=== PATIENT | female | born 1990 | race Caucasian/White ===

== ENCOUNTER 2017-12-07 21:11 | Emergency (ER) | payer BC, OTHER ==
[2017-12-07 21:57] VITALS: BP 121/86
--- NOTE | 2017-12-08 01:12 | ED ---
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 Pt was administering subcutaneous injection and went through pts skin to her own finger. The inpatient had tested neg for HIV this admission. She denies any symptoms or concerns. The needlestick is to the left index finger. - History of Current Complaint Chief Complaint: EDExposureBodyFluid Stated Complaint: NEEDLE STICK Time Seen by Provider: 12/07/17 21:17 Blood on Needle: No Bleeding at Site: No - Source Information HIV: No Hepatitis: Unknown - Risk Factors Needlestick Risk Factor: Low Risk: Solid Needle - Other Discussed Post-Exposure prophylaxis (PEP) for HIV: Declined Discussed PEP for Hepatitis-B: Declined Serologic Testing (HIV/HBV) Declined by Patient: Yes PMH/Surg Hx/FS Hx/Imm Hx Previously Healthy: Yes - Immunization History Hx Pertussis Vaccination: No Immunizations Up to Date: Unable to Obtain/Confirm Infectious Disease History: No Infectious Disease History: Denies: Traveled Outside the in Last 30 Days - Social History Occupation: Employed Full-time Lives: With Family Alcohol Use: None Substance Use Type: Reports: None Smoking Status (MU): Never Smoked Tobacco Review of Systems Constitutional: Negative Negative: Fever, Chills, Fatigue, Skin Diaphoresis Negative: Palpitations, Chest Pain Negative: Shortness Of Breath, Cough Genitourinary: Negative Positive: no symptoms reported, see HPI Positive: Other - punture wound tothe left index finger Neurological: Negative All Other Systems Reviewed And Are Negative: Yes Physical Exam Triage Information Reviewed: Yes Vital Signs On Initial Exam: Initial Vitals Temp Pulse Resp BP Pulse Ox 98.4 F 112 18 123/87 100 12/07/17 21:15 12/07/17 21:15 12/07/17 21:15 12/07/17 21:15 12/07/17 21:15 Vital Signs Reviewed: Yes Appearance: Positive: Well-Appearing, Well-Nourished Skin: Positive: Warm, Skin Color Reflects Adequate Perfusion Head/Face: Positive: Normal Head/Face Inspection Eyes: Positive: EOMI, ALENA, Conjunctiva Clear Neck: Positive: Supple, No Lymphadenopathy Respiratory/Lung Sounds: Positive: Clear to Auscultation, Breath Sounds Present Abdomen Description: Positive: Nontender, No Organomegaly Neurological: Positive: Alert, Oriented to Person Place, Time, Speech Normal Psychiatric: Positive: Normal, Affect/Mood Appropriate Diagnostics - Vital Signs Vital Signs Temp Pulse Resp BP Pulse Ox 12/07/17 21:56 98.4 F 97 16 121/86 100 12/07/17 21:15 98.4 F 112 18 123/87 100 - Laboratory Lab Statement: Any lab studies that have been ordered have been reviewed, and results considered in the medical decision making process. Needlestick Course/Dx - Course Course Of Treatment: I have discussed with the patient postexposure prophylaxis. Patient declines this, and I have advised against it as well. She is a low risk as there are 1 small puncture wound which did not draw blood. Source patient's last known status is negative for HIV. Hepatitis B antigen , hepatitis B antibody, hepatitis C antibody and HIV all obtained and will call with any positive results. - Diagnoses Provider Diagnoses: Exposure to blood Discharge - Sign-Out/Discharge Documenting (check all that apply): Discharge - Discharge Plan Condition: Stable Disposition: HOME Patient Education Materials: Body Substance Exposure (ED) Referrals: Non Staff,Doctor [Medical Doctor] - Additional Instructions: Will call with any abnormal results - Billing Disposition and Condition Condition: STABLE Disposition: HOME
== END 2017-12-07 21:56 | disposition home or self-care (01) ==
LOC: ED 21:11
DX: S61.231A Puncture wound without foreign body of left index finger without damage to nail, initial encounter (principal); X58.XXXA Exposure to other specified factors, initial encounter; Y92.239 Unspecified place in hospital as the place of occurrence of the external cause; Y99.0 Civilian activity done for income or pay; Z77.21 Contact with and (suspected) exposure to potentially hazardous body fluids; Z88.0 Allergy status to penicillin
CPT/HCPCS: 36415; 86706; 86803; 87340; 99282

== ENCOUNTER 2017-12-27 16:40 | Emergency (ER) | payer BC ==
[2017-12-27 17:07] VITALS: BP 121/55
--- NOTE | 2017-12-27 18:25 | RAD ---
INDICATION: Left knee injury. TECHNIQUE: 4 views of the left knee were obtained. FINDINGS: The bones are in normal alignment. There is a small joint effusion present. No fracture is seen. Joint spaces appear maintained. IMPRESSION: SMALL JOINT EFFUSION, NO FRACTURE IS SEEN.
--- NOTE | 2017-12-27 18:34 | UC ---
Knee Pain HPI - HPI Summary HPI Summary: PATIENT FELL TODAY WHILE CLEANING AND TWISTED LEFT KNEE. NOW IS HAVING SHARP PAIN WITH AMBULATION. NO NUMBNESS OR TINGLING. - History of Current Complaint Chief Complaint: UCLowerExtremity Stated Complaint: KNEE INJURY Time Seen by Provider: 12/27/17 18:25 Hx Obtained From: Patient Hx Last Menstrual Period: mirena Onset/Duration: Sudden Onset, Lasting Hours, Still Present Severity Initially: Moderate Severity Currently: Moderate Pain Intensity: 4 Pain Scale Used: 0-10 Numeric Character: Sharp Aggravating Factor(s): Movement, Weight Bearing Alleviating Factor(s): Rest Associated Signs And Symptoms: Positive: Swelling. Negative: Numbness, Tingling Able to Bear Weight: Yes - Allergies/Home Medications Allergies/Adverse Reactions: Allergies Allergy/AdvReac Type Severity Reaction Status Date / Time cefaclor [From [facility]] Allergy Anaphylatic Verified 12/27/17 17:07 Shock Latex, Natural Rubber Allergy Hives Verified 12/27/17 17:07 Penicillins Allergy Anaphylatic Verified 12/27/17 17:07 Shock Home Medications: Home Medications Albuterol inh POWDER (NF) [Proair Respiclick] 1 puff PO DAILY PRN 12/27/17 [ History Confirmed 12/27/17] Levothyroxine TAB* [Synthroid 100 MCG TAB*] 100 mcg PO DAILY 12/27/17 [History Confirmed 12/27/17] Mometasone/Formoter 100/5 MDI* [Dulera 100/5 MDI*] 1 puff PO DAILY PRN 12/27/17 [History Confirmed 12/27/17] PMH/Surg Hx/FS Hx/Imm Hx Endocrine History: Hypothyroidism Respiratory History: Asthma - Surgical History Surgical History: None - Family History Known Family History: Positive: Hypertension - Social History Alcohol Use: Occasionally Substance Use Type: None Smoking Status (MU): Never Smoked Tobacco Review of Systems Constitutional: Negative Skin: Negative Respiratory: Negative Cardiovascular: Negative Gastrointestinal: Negative Musculoskeletal: Arthralgia, Decreased ROM, Edema All Other Systems Reviewed And Are Negative: Yes Physical Exam Triage Information Reviewed: Yes Appearance: Well-Appearing, No Pain Distress, Well-Nourished Vital Signs: Initial Vital Signs Temp 98.9 F 12/27/17 17:01 Pulse 81 12/27/17 17:01 Resp 18 12/27/17 17:01 BP 121/55 12/27/17 17:01 Pulse Ox 100 12/27/17 17:01 Vital Signs Reviewed: Yes Eyes: Positive: Conjunctiva Clear ENT: Positive: Hearing grossly normal Neck: Positive: Supple Respiratory: Positive: No respiratory distress, No accessory muscle use Cardiovascular: Positive: Pulses Normal Abdomen Description: Positive: Soft Musculoskeletal: Positive: ROM Limited @ - LEFT KNEE, Edema @ - MILD LEFT KNEE, Other: - LEFT KNEE: MEDIAL JOINT LINE TENDERNESS. MCL AND LCL INTACT TO STRESS TESTING. NEG LACHMANS. NEG DRAWERS SIGNS. NEG MCMURRAYS. NEG PATELLAR APPREHENSION TEST. NO TENDERNESS OVER PATELLAR LIGAMENT OR QUADRICEPS TENDON. DECREASED ROM (FLEXION). Neurological: Positive: Alert Psychological: Positive: Age Appropriate Behavior Skin: Negative: rashes Diagnostics - Radiology LEFT KNEE XRAY Xray Interpretation: Positive (See Comments) - SMALL JOINT EFFUSION, NO FRACTURE IS SEEN. Radiology Interpretation Completed By: Radiologist Knee Pain Course/Dx - Differential Dx/Diagnosis Provider Diagnoses: LEFT KNEE SPRAIN Discharge - Sign-Out/Discharge Documenting (check all that apply): Discharge - Discharge Plan Condition: Stable Disposition: HOME Patient Education Materials: Knee Sprain (ED) Referrals: [facility],Sharona Winslow [Primary Care Provider] - If Needed Jeanie Mcneill MD [Medical Doctor] - 2 Weeks Additional Instructions: XRAY SHOWED SMALL JOINT EFFUSION BUT NO FRACTURE. LIKELY SPRAINED KNEE. REST, ICE, COMPRESS, ELEVATE. [id number] MEDICINES FOR DISCOMFORT. IF YOU'RE NOT IMPROVING EXPECTED OVER THE NEXT 1-2 WEEKS FOLLOW-UP WITH ORTHOPEDICS. - Billing Disposition and Condition Condition: STABLE Disposition: HOME
== END 2017-12-27 18:45 | disposition home or self-care (01) ==
LOC: UCEAST 16:40
DX: S83.92XA Sprain of unspecified site of left knee, initial encounter (principal); X50.1XXA Overexertion from prolonged static or awkward postures, initial encounter; Y93.E9 Activity, other interior property and clothing maintenance; Y92.9 Unspecified place or not applicable; E03.9 Hypothyroidism, unspecified; J45.909 Unspecified asthma, uncomplicated; Z88.0 Allergy status to penicillin; Z88.1 Allergy status to other antibiotic agents; Z91.040 Latex allergy status
CPT/HCPCS: 99211; G0463

== ENCOUNTER 2018-02-12 06:26 | Day surgery (SDC) | payer BC ==
--- NOTE | 2018-02-02 06:56 | HP ---
PREOPERATIVE HISTORY AND PHYSICAL: DATE OF ADMISSION/SURGERY: 02/12/18 DATE OF OFFICE VISIT: 02/01/18 ATTENDING SURGEON: Hermann Villalba MD * (DICTATED BY AISHWARYA CORONA) PROCEDURE: Left knee arthroscopy, ACL reconstruction using autograft. CHIEF COMPLAINT: Left knee. HISTORY OF PRESENT ILLNESS: Helena is a 27-year-old female, who presents to the clinic for left knee pain and instability due to an ACL tear. She has failed conservative measures and has therefore agreed to undergo left knee arthroscopy , ACL reconstruction using autograft. The patient has decided she wants to do bone- patellar tendon-bone autograft with Dr. Villalba on 02/12/18. PAST MEDICAL HISTORY: Asthma and hypothyroidism. PAST SURGICAL HISTORY: Strabismus surgery x3, all done before the age of 10. Denies prior complications with anesthesia. MEDICATIONS: 1. Levothyroxine 100 mcg 1 by mouth daily. 2. ProAir HFA 108/90 mcg/ACT 2 puffs every 4 hours as needed. 3. Symbicort 80/4.5 mcg/ACT 2 puffs twice a day. 4. Mirena 20 mcg for 24 hours. 5. Retin-A 0.05% topical apply once daily to the face. ALLERGIES: PENICILLIN, LATEX, CECLOR. FAMILY HISTORY: Positive for diabetes and hypertension. 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 She is right-hand dominant. She denies tobacco use. She reports rare alcohol consumption. REVIEW OF SYSTEMS: A 14-point review of systems was reviewed with the patient. Positive for current complaint, otherwise negative. Denies fever, chills, chest pain, shortness of breath, history of bleeding disorder, history of DVT or PE, history of hep C or HIV. PHYSICAL EXAMINATION GENERAL: A 27-year-old well-developed, well-nourished female, in no acute distress, alert, and oriented x3. Appropriate mood and affect. Appropriate balance and coordination of the upper extremities. VITAL SIGNS: Height 70, weight 138, pulse 80, blood pressure 100/72, temperature 97.3, BMI 19.8. HEENT: Normocephalic, atraumatic. PERRLA. Throat clear. NECK: Supple. PULMONARY: Lungs are clear to auscultation bilaterally. No wheezing, rhonchi, or rales. CARDIO: Regular rate and rhythm. S1 and S2. No murmurs, gallops, or rubs. No edema. ABDOMEN: Positive bowel sounds, soft, nontender. NEURO: Alert and oriented x3. Cranial nerves grossly intact. MUSCULOSKELETAL: Left lower extremity, skin is intact. No warmth or erythema. Mild effusion. Range of motion 0 to 130. Stable varus and valgus stress. Visible quad atrophy. 2B Yolette. Negative posterior drawer. Calf soft, nontender. 5/5 strength to dorsiflexion and plantar flexion. Sensation intact to light touch distally. DIAGNOSTIC STUDIES: MRI of the left knee reveals complete ACL tear. The meniscus appears intact. IMPRESSION: Left knee anterior cruciate ligament tear. PLAN: The patient is scheduled to undergo a left knee arthroscopy, ACL reconstruction using autograft with Dr. Villalba on 02/12/18. The patient has decided she wants bone-patellar tendon-bone autograft. She will return to the office 10 days postop for followup and suture removal. The patient would like to use Tylenol and ibuprofen for pain postoperatively. She will call if she needs oxycodone for pain if the Tylenol and ibuprofen do not control it. She will also be sent 3 days of clindamycin for antibiotic prophylaxis. AISHWARYA CORONA [id number]/[facility] #: [id number] MTDCurt
[~2018-02-12 06:26] MED LIST: Buffered Lidocaine 0.9% SYRIN* 5 ML/SYR SYRINGE INTRADERM ONE; Dexamethasone IV* 4 MG/ML 1 ML (4 MG) ONE; Dexamethasone TAB* 4 MG PO ONE; DiMENhydriNATE IV* 50 MG/ML VIAL IV PUSH PRN; Famotidine IV* 10 MG/ML 2 ML (20 mg) IV ONE; Famotidine IV* 10 MG/ML 2 ML (20 mg) ONE; Morphine INJ* 2 MG/ML 1 ML CARPUJECT IV PRN; Naloxone* 0.4 MG/ML 1 ML VIAL IV PRN; Ondansetron INJ* 2 MG/ML VIAL ONE; PROCHLORPERAZINE INJ 5 MG/ML 2 ML VIAL IV PRN; Scopolamine 1.5 mg* PATCH TRANSDERM PRN; fentaNYL* 50 MCG/ML 2 ML VIAL (100 MCG VIAL) IV PRN; oxyCODONE/Acetamin 5/325 MG* TAB PO PRN
[2018-02-12] MEDS ORDERED: Bupivacaine 0.25% SDV* 30 ML ONE (06:52)
[2018-02-12] MEDS ORDERED: Lidocain 1% EPI 1:100,000 * 30 ML MDV ONE (06:52)
[2018-02-12] MEDS ORDERED: Clindamycin 900 MG IVPREMIX(* 900 MG/50 ML SDV IV ONE (06:54)
[2018-02-12] MEDS ORDERED: fentaNYL* 50 MCG/ML 2 ML VIAL (100 MCG VIAL) ONE (07:08)
[2018-02-12] MEDS ORDERED: Midazolam* 1 MG/ML 5 ML VIAL (5 MG) ONE (07:08)
[2018-02-12] MEDS ORDERED: Lidocaine 2% PF * 5 ML VIAL ONE (07:40)
[2018-02-12] MEDS ORDERED: PROCHLORPERAZINE INJ 5 MG/ML 2 ML VIAL ONE ×2 (07:40→10:49)
[2018-02-12] MEDS ORDERED: Propofol* 10 MG/ML 20 ML BTL IV PUSH ONE (07:40)
[2018-02-12] MEDS ORDERED: Ketorolac INJ* 30 MG/ML 1 ML VIAL ONE (07:40)
[2018-02-12] MEDS ORDERED: Morphine INJ* 10 MG/ML 1 ML CARPUJECT ONE (07:50)
[2018-02-12] MEDS ORDERED: DiMENhydriNATE IV* 50 MG/ML VIAL ONE (09:57)
[2018-02-12] MEDS ORDERED: Ondansetron ODT TAB* 4 MG ONE (10:18)
[2018-02-12] MEDS ORDERED: Scopolamine 1.5 mg* PATCH ONE (10:49)
[2018-02-12 11:41] VITALS: BP 104/75
--- NOTE | 2018-02-12 15:49 | OP ---
CC: PCP, Sharona Henriquez NP * DATE OF OPERATION: 02/12/18 - [facility] DATE OF : 88 SURGEON: Hermann Villalba MD BUTADIENE CONVERTOR OPERATOR: AISHWARYA Peguero. An expanded function dental assistant was needed for the entirety of the case to help with positioning and retraction, and was utilized throughout all portions of the case. ANESTHESIOLOGIST: Dr. Rowe. ANESTHESIA: General. PRE-OP DIAGNOSIS: Left knee grade 3 ACL rupture. POST-OP DIAGNOSIS: Left knee grade 3 ACL rupture with lateral meniscus tear. OPERATIVE PROCEDURES: 1. Left knee arthroscopy with ACL reconstruction using BTB autograft. 2. Partial lateral meniscectomy for non-repairable tear. COMPLICATIONS: None. ESTIMATED BLOOD LOSS: Minimal. TOURNIQUET TIME: 21 minutes at 250 mmHg. INDICATIONS: Helena Cortes is a 27-year-old female who presented with a left knee ACL injury potentially 6 months ago. She had persistent episodes of instability and pain and has failed conservative treatment. Risks and benefits of surgery were discussed at length and include but not limited to, bleeding, infection, damage to nerves, vessels, surrounding structures, wound nonhealing, persistent pain, need for further surgery, scarring, stiffness, incomplete relief of symptoms, risk of anesthesia, risk of arthritis, need for further surgery, risk of DVT. DESCRIPTION OF PROCEDURE: The patient was greeted in the preoperative area by the attending surgeon. The correct extremity was marked, consent was confirmed. The patient brought back to the operating suite where she was placed in a supine position on the operating room table. She then underwent general anesthesia and LMA intubation, after which she was appropriately positioned in the bed, the lateral post was positioned, a gonzalez bag was placed at the end of the bed to keep the knee at 90 degrees. A non-sterile tourniquet was placed. The left leg was prepped and draped in usual sterile fashion using chlorhexidine soap, scrub and alcohol wipe, and a final prep with ChloraPrep. After appropriate surgical pause indicating side and site of procedure, and administration of antibiotics, the knee was intraarticularly injected with 1% lidocaine with epi. The limb was exsanguinated and the tourniquet inflated to 250 mmHg. At this point, a midline incision centered over the patellar tendon was then made sharply with a #15 blade. Soft tissues were carefully dissected to expose paratenon, which was then incised and kept for later layer closure. The tendon met was very long and wide and measured about 40 mm in width, the center 10 mm were then harvested full thickness with a 15 blade. Once the soft tissue portion was harvested, the bone block was then harvested using a sagittal saw, the grafts were then loosened with an osteotome and then removed and prepared at the back table by the expanded function dental assistant. The harvest site was then closed with 0-Vicryl in an interrupted fashion. Tourniquet was then deflated. Attention was directed to arthroscopy. The lateral portal was then made through the capsule. The scope was brought to the joint. The patellofemoral joint had grade 0 changes. The medial and lateral gutters were intact. There was fraying about the medial aspect of the medial femoral condyle and erythema. There was abundant fat pad that was present. The anteromedial portal was then made using 18-gauge needle for localization. The shaver was then used to debride back the fat pad. There was a grade 3 complete rupture of the ACL with some of the tibial stump scarred back to the PCL. This was debrided back using jeronimo and biters. The lateral wall was then prepared using electrocautery device. At this point, a diagnostic arthroscopy portion was done and the medial compartment was examined, it had grade 0 changes. The medial meniscus was intact. The tibial plateau had grade 0 changes. Medial femoral condyle had grade 0 changes. Knee was placed in [id number] position. Lateral femoral condyle had grade 0 to 1 changes. Lateral plateau had small area of grade 2 changes. There was partial tearing at the root and there was a longitudinal tear. There was beginning of a bucket handle tear that was displaced and deemed not repairable. The biters and jeronimo were then used to debride back the meniscus. Approximately 25% of the meniscus was removed and this was posterolaterally. The remainder of the meniscus was intact. Once the partial meniscectomy was complete and all debris was removed, attention was directed back to the ACL portion. The tip-to-tip guide was placed at approximately 50 degrees and the guidewire was drilled to the center of the footprint. This was confirmed by arthroscopic visualization. Then, this was overdrilled with a size 10 mm full-bore reamer. Excess bone graft was kept for later bone grafting. The tunnel was then carefully rasped. At this point, a carrot was placed to prevent fluid egress. Attention was directed to the femoral tunnel. An awl had been previously used to cosme the provisional portion of the tunnel, this was checked by changing the scope from the lateral to the medial portal to make sure that this is appropriately positioned and used as a reference point. At this point, the Marcus and Nephew straight guide was then placed in the appropriate position, the Beath pin was then drilled through the center of the footprint out to the lateral condyle to IT band and skin. The knee was hyperflexed during this portion of the case. This was then drilled with a cannulated drill bit, low- profile reamer to a depth of approximately 28 mm, which was a size 9 mm drill bit. The excess bone and debris was removed. The tunnel was then notched. Tunnel was visualized, found to have a good back wall and appropriate amount of bone stock. At this point, a #2 Ethibond suture was placed through the eyelet of the Beath pin and I advanced through the skin incision, then passed in an anterograde fashion to the tibial tunnel. The graft was then brought to the operating table. Under direct and arthroscopic visualization, the graft was passed until it was well seated into the femoral tunnel. A Nitinol wire was then used and a size 7 x 25 mm SoftSilk screw was used to secure the bone. This was placed with excellent purchase. At this point, the images were taken to show the graft in a good position. The knee was then cycled approximately 15 times from full extension to full flexion. The scope was brought back to the joint to visualize the graft again, it was found to be stable. At this point, the knee was placed in gentle flexion, about 20 degrees of flexion with tension on the tibial sutures. The graft was secured with a size 9 x 25 mm SoftSilk screw with excellent purchase. The knee was taken through range of motion. Yolette was assessed and found to be stable. The scope was brought back to the joint and the graft was found to be stable. The wounds were then copiously irrigated. The excess bone block was then removed and used for bone graft. The bone graft was placed in the patellar defect and then oversewn with 0- Vicryl. The paratenon was closed with 2-0 Vicryl in a running fashion. The wounds were irrigated again and the skin was closed in layers with 2- 0 Vicryl and 3-0 Monocryl. Sterile dressings were applied. The knee was intraarticularly and superficially injected with 0.25% Marcaine plain. The sterile dressings were applied. A Cryo/Cuff and a hinged knee brace was applied. Range of motion is locked at 0, but is set to full range of motion. She was awoken from anesthesia, transferred back in stable condition. POSTOPERATIVE PLAN: She will be weightbearing as tolerated with the knee in extension for the first 4 weeks. She will be discharged on pain medication and antibiotics. DVT prophylaxis was considered, but deferred due to no previous personal or family history. She has an IUD and we will monitor her closely. I will see the patient back in 6 to 8 days. [id number]/[facility] #: [id number] MTDD
[2018-02-15] MEDS ORDERED: Scopolamine PATCH Remove* 1 NOTE MISC PATCH OFF ONE (05:39)
== END 2018-02-12 11:34 | disposition home or self-care (01) ==
LOC: OREAST 06:26
PROVIDERS: ATTEND Orthopaedic Surgery
DX: S83.512A Sprain of anterior cruciate ligament of left knee, initial encounter (principal); S83.282A Other tear of lateral meniscus, current injury, left knee, initial encounter; X58.XXXA Exposure to other specified factors, initial encounter; Y92.9 Unspecified place or not applicable; E03.9 Hypothyroidism, unspecified; J45.990 Exercise induced bronchospasm
CPT/HCPCS: 81025; A9270-GY; C1713; J0780; J1100; J1240; J1885; J2250; J2270; J2704; J3010

== ENCOUNTER 2018-02-15 16:35 | Emergency (ER) | payer BC ==
--- NOTE | 2018-02-15 18:47 | RAD ---
Indication: Left leg edema. Duplex Doppler sonography of the deep venous system of the left lower extremity deep venous system was performed. Bilaterally the common femoral veins appear patent and compressible. Left proximal greater saphenous vein, proximal deep femoral vein, femoral vein, popliteal vein, posterior tibial veins and peroneal veins appear patent and compressible. IMPRESSION: NO EVIDENCE OF DEEP VENOUS THROMBOSIS IS IDENTIFIED.
--- NOTE | 2018-02-15 19:38 | ED ---
Fareed Clinton Tiffany, scribed for Beau Peña MD on 02/15/18 at 1731 . Lower Extremity - HPI Summary HPI Summary: 27 year old F presenting to [facility] complains of left leg pain since today. Rates the pain as 1/10 in severity. Symptoms aggravated by standing. Symptoms alleviated by nothing. Reports left calf edema. Denies SOB, chest pain, fever, chills. Patient had L ACL reconstruction and medial meniscus repair [address] Villalba, orthopedics. Took surgical dressing off today. - History of Current Complaint Chief Complaint: EDExtremityLower Stated Complaint: LT LEG SWOLLEN/POST SURGERY Time Seen by Provider: 02/15/18 17:00 Hx Obtained From: Patient Hx Last Menstrual Period: mirena Severity Currently: Mild Pain Intensity: 1 Pain Scale Used: 0-10 Numeric Timing: Constant Associated Signs And Symptoms: Positive: Other - left calf edema; NEGATIVE: SOB , chest pain, fever, chills. Aggravating Factor(s): Standing Alleviating Factor(s): Nothing - Allergies/Home Medications Allergies/Adverse Reactions: Allergies Allergy/AdvReac Type Severity Reaction Status Date / Time cefaclor [From Ceclor] Allergy Severe Anaphylatic Verified 02/15/18 17:03 Shock Penicillins Allergy Severe Anaphylatic Verified 02/15/18 17:03 Shock Latex, Natural Rubber Allergy Hives Verified 02/15/18 17:03 PMH/Surg Hx/FS Hx/Imm Hx Previously Healthy: No Endocrine/Hematology History: Reports: Hx Thyroid Disease - hypothyroid Denies: Hx Diabetes Cardiovascular History: Denies: Hx Hypertension, Hx Pacemaker/ICD, Other Cardiovascular Problems/ Disorders Respiratory History: Reports: Hx Asthma - exercise induced Denies: Hx Chronic Obstructive Pulmonary Disease (COPD), Hx Sleep Apnea, Other Respiratory Problems/Disorders GI History: Denies: Hx Ulcer, Other GI Disorders History: Denies: Hx Renal Disease, Other Problems/Disorders Musculoskeletal History: Reports: Other Musculoskeletal History - Fractured left ankle 2010, torn acl Denies: Hx Arthritis, Hx Bursitis, Hx Tendonitis Sensory History: Reports: Hx Contacts or Glasses - glasses and contacts Denies: Hx Hearing Aid Opthamlomology History: Reports: Hx Contacts or Glasses - glasses and contacts Neurological History: Denies: Other Neuro Impairments/Disorders Psychiatric History: Denies: Hx Panic Disorder - Surgical History Surgery Procedure, Year, and Place: 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 AGE 9 Hx Anesthesia Reactions: No Infectious Disease History: No Infectious Disease History: Denies: Hx Hepatitis, Hx Human Immunodeficiency Virus (HIV), Traveled Outside the [place] in Last 30 Days - Family History Known Family History: Positive: Hypertension - Social History Alcohol Use: Occasionally Hx Substance Use: No Substance Use Type: Reports: None Hx Tobacco Use: No Smoking Status (MU): Never Smoked Tobacco Review of Systems Negative: Fever, Chills Negative: Chest Pain Negative: Shortness Of Breath Positive: Edema - left calf, Other - left leg pain All Other Systems Reviewed And Are Negative: Yes Physical Exam - Summary Physical Exam Summary: VITAL SIGNS: Reviewed. GENERAL: Patient is a well-developed and nourished female who is lying comfortable in the stretcher. Patient is not in any acute respiratory distress. The patient does not complain of chest pain or shortness of breath. HEAD AND FACE: No signs of trauma. No ecchymosis, hematomas or skull depressions. No sinus tenderness. EYES: PERRLA, EOMI x 2, No injected conjunctiva, no nystagmus. EARS: Hearing grossly intact. Ear canals and tympanic membranes are within normal limits. MOUTH: Oropharynx within normal limits. NECK: Supple, trachea is midline, no adenopathy, no JVD, no carotid bruit, no c- spine tenderness, neck with full ROM. CHEST: Symmetric, no tenderness at palpation LUNGS: Clear to auscultation bilaterally. No wheezing or crackles. CVS: Regular rate and rhythm, S1 and S2 present, no murmurs or gallops appreciated. ABDOMEN: Soft, non-tender. No signs of distention. No rebound no guarding, and no masses palpated. Bowel sounds are normal. EXTREMITIES: The patient has left lower extremity swelling and tenderness. There is no erythema. NEURO: Alert and oriented x 3. No acute neurological deficits. Speech is normal and follows commands. SKIN: Dry and warm Triage Information Reviewed: Yes Vital Signs On Initial Exam: Initial Vitals Temp Pulse Resp BP Pulse Ox 100 F 98 18 121/77 100 02/15/18 16:59 02/15/18 16:59 02/15/18 16:59 02/15/18 16:59 02/15/18 16:59 Vital Signs Reviewed: Yes Diagnostics - Vital Signs Vital Signs Temp Pulse Resp BP Pulse Ox 02/15/18 16:59 100 F 98 18 121/77 100 - Laboratory Lab Statement: Any lab studies that have been ordered have been reviewed, and results considered in the medical decision making process. - Additional Comments Diagnostic Additional Comments: Venous doppler study, per radiologist, shows NO EVIDENCE OF DEEP VENOUS THROMBOSIS IS IDENTIFIED. ED physician has reviewed this report. Lower Extremity Course/Dx - Course Assessment/Plan: Left lower genitalia ultrasound impression: No DVT. Therefore the patient was advised to elevate the foot take and anti-inflammatories and follow up with Dr. Alvarez. The patient understands and agrees. She was instructed to return to the emergency room should he develop any other symptoms. - Diagnoses Differential Diagnosis/HQI/PQRI: Positive: Bursitis, Cellulitis, Contusion, DVT , Sprain, Strain Provider Diagnoses: Leg swelling Discharge - Sign-Out/Discharge Documenting (check all that apply): Discharge/Admit/Transfer - Discharge Plan Condition: Stable Disposition: HOME Patient Education Materials: Leg Edema (ED) Referrals: Martinez CABELLO-C,Sharona Winslow [Primary Care Provider] - Additional Instructions: To follow-up with Dr. Alvarez - Billing Disposition and Condition Condition: STABLE Disposition: Home The documentation as recorded by the Fareed romano Tiffany accurately reflects the service I personally performed and the decisions made by me, Beau Peña MD.
[2018-02-15 19:49] VITALS: BP 117/60
== END 2018-02-15 19:47 | disposition home or self-care (01) ==
LOC: ED 16:35
DX: R22.42 Localized swelling, mass and lump, left lower limb (principal); Z88.0 Allergy status to penicillin; Z88.8 Allergy status to other drugs, medicaments and biological substances
CPT/HCPCS: 99281

== ENCOUNTER 2018-12-18 17:48 | Emergency (ER) | payer BC ==
[2018-12-18] MEDS ORDERED: Ondansetron ODT TAB* 4 MG PO ONE ×2 (18:25→22:12)
[2018-12-18] MEDS ORDERED: NS 0.9% 1000 ML** 1,000 ML IV ONE (19:16)
--- NOTE | 2018-12-18 19:25 | UC ---
Abdominal Pain Female HPI - HPI Summary HPI Summary: 28-year-old woman comes in with a chief complaint of 2 weeks of nausea and intermittent abdominal pain and loose stools. Patient to see her primary care doctor last week and they did check some blood work. Patient's having abdominal discomfort in the epigastrium and then all the way across the lower abdomen. The pain is intermittent although it does tend to reoccur in the same areas. No fevers. Stool has been slightly loose. Color is remained and normal brown. Has not seen any blood in the stools. Today she felt extremely nauseous she was driving and she felt like she was going to pass out with nausea. She is lactose intolerant however she's been avoiding any kind of dairy. She has Mirena and is not concerned about being . - History of Current Complaint Chief Complaint: UCGI Stated Complaint: NAUSEA, AND CHEST PAIN Time Seen by Provider: 12/18/18 18:28 Hx Last Menstrual Period: 2-3 weeks ago Pain Intensity: 3 Allergies/Adverse Reactions: Allergies Allergy/AdvReac Type Severity Reaction Status Date / Time cefaclor [From [facility]] Allergy Severe Anaphylatic Verified 12/18/18 17:54 Shock Penicillins Allergy Severe Anaphylatic Verified 12/18/18 17:54 Shock Latex, Natural Rubber Allergy Hives Verified 12/18/18 17:54 Home Medications: Home Medications Budesonide/Formote 80/4.5(NF) [Symbicort 80/4.5 (NF)] 1 puff INH BID PRN [History Confirmed 12/18/18] PMH/Surg Hx/FS Hx/Imm Hx Previously Healthy: Yes Endocrine History: Hypothyroidism Other GI/ History: LACTOSE INTOLERANCE - Surgical History Surgical History: Yes Surgery Procedure, Year, and Place: 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 Left ACL Reconstruction February 2018 - Family History Known Family History: Positive: Hypertension - Social History Alcohol Use: Occasionally Substance Use Type: None Smoking Status (MU): Never Smoked Tobacco Review of Systems All Other Systems Reviewed And Are Negative: Yes Constitutional: Positive: Negative Skin: Positive: Negative Eyes: Positive: Negative ENT: Positive: Negative Respiratory: Positive: Negative Cardiovascular: Positive: Negative Gastrointestinal: Positive: Abdominal Pain, Vomiting, Diarrhea Genitourinary: Positive: Negative Motor: Positive: Negative Neurovascular: Positive: Negative Musculoskeletal: Positive: Negative Neurological: Positive: Negative Psychological: Positive: Negative Is Patient Immunocompromised?: No Physical Exam Triage Information Reviewed: Yes Appearance: Well-Nourished, Ill-Appearing - MILD, Pain Distress - MILD Vital Signs: Initial Vital Signs Temp 99.0 F 12/18/18 17:54 Pulse 109 12/18/18 17:54 Resp 18 12/18/18 17:54 BP 117/63 12/18/18 17:54 Pulse Ox 99 12/18/18 17:54 Vital Signs Reviewed: Yes Eye Exam: Normal Eyes: Positive: Conjunctiva Clear Neck: Positive: Supple Respiratory: Positive: Lungs clear, Normal breath sounds, No respiratory distress Cardiovascular: Positive: Tachycardia Abdomen Description: Positive: Soft, Other: - MILD TENDERNESS EPIGASTRIUM AND ALL ACRESS MID ABD. NT RLQ/LLQ. Negative: CVA Tenderness (R), CVA Tenderness (L ), Distended Musculoskeletal Exam: Normal Musculoskeletal: Positive: Strength Intact, ROM Intact Neurological Exam: Normal Neurological: Positive: Alert, Muscle Tone Normal Psychological Exam: Normal Psychological: Positive: Normal Response To Family, Age Appropriate Behavior Skin Exam: Normal Abd Pain Female Course/Dx - Course Course Of Treatment: : 1990 Age: 28 Sex: F Location: [facility] Exam Date: 12/18/182015 ADM Status: REG ER Order Information: CT ABD/PEL W/O Accession Number: [id number] CPT: 66171 EXAM: CT Abdomen and Pelvis Without Contrast EXAM DATE/TIME: 12/18/2018 8:34 PM CLINICAL HISTORY: 28 years old, female; Pain and signs and symptoms; Abdominal tenderness and nausea and vomiting; Abdominal pain; Generalized; Patient HX: Mid abdominal pain, nausea, vomiting, diarrhea, dizziness, fatigue for 2 weeks. ; Additional info: Abd pain, nausea, vomiting, diarrhea TECHNIQUE: Imaging protocol: Axial computed tomography images of the abdomen and pelvis without contrast. Coronal and sagittal reformatted images were created and reviewed. Radiation optimization: All CT scans at this facility use at least one of these dose optimization techniques: automated exposure control; mA and/or kV adjustment per patient size (includes targeted exams where dose is matched to clinical indication); or iterative reconstruction. COMPARISON: No relevant prior studies available. FINDINGS: Lower thorax: No acute findings. ABDOMEN: Liver: Normal. No mass. Gallbladder and bile ducts: Normal. No calcified stones. No ductal dilation. Pancreas: Normal. No ductal dilation. Spleen: Normal. No splenomegaly. Adrenals: Normal. No mass. Kidneys and ureters: Normal. No hydronephrosis. Stomach and bowel: Normal. No obstruction. No mucosal thickening. Appendix: No evidence of appendicitis. PELVIS: Bladder: Unremarkable as visualized. Reproductive: IUD in place. ABDOMEN and PELVIS: Intraperitoneal space: Normal. No free air. No significant fluid collection. Bones/joints: No acute fracture. No dislocation. Soft tissues: Unremarkable. Vasculature: Normal. No abdominal aortic aneurysm. Lymph nodes: Normal. No enlarged lymph nodes. IMPRESSION: No acute findings. To contact [facility] with a general question: [facility] - [phone] For direct physician to physician contact: Physician Hotline - [phone] [facility] [place] ([facility] Facility ID #[id number]) <Electronically signed by Rickie Tarango MD in OV> 12/18/182136 I discussed the I discussed the CT report with the patient and her partner. As no acute findings on the CT. With the IV fluids and Zofran and Reglan there was some improvement in the nausea. With orthostatics patient's heart rate did increase and she didn't feel lightheaded however her blood pressure stays stable. Patient has no fever here. We discussed drawing blood work but the patient reports she had blood work drawn at her primary care physician's that she will follow-up with them. We discussed going to the emergency department if she is not improving or feels worse. At this time the patient prefers to follow up with her primary care doctor and gastroenterology. Patient does note go the emergency department if anything gets worse or if she has any questions or concerns. - Differential Dx/Diagnosis Provider Diagnosis: Abdominal pain, Dehydration, Nausea vomiting and diarrhea Discharge - Sign-Out/Discharge Documenting (check all that apply): Patient Departure All imaging exams completed and their final reports reviewed: Yes - Discharge Plan Condition: Stable Disposition: HOME Prescriptions: Ondansetron ODT TAB* [Zofran 4 MG Odt TAB*] 4 mg PO Q6H PRN #15 tab.odt PRN Reason: Nausea Patient Education Materials: Dehydration (ED), Acute Nausea and Vomiting (ED), Acute Diarrhea (ED), Abdominal Pain (ED) Referrals: Martinez JIN,Sharona Winslow [Primary Care Provider] - Eliazar Ruff DO [Doctor of Osteopathy] - Additional Instructions: FOLLOW UP WITH YOUR DOCTOR AND GASTROENTEROLOGY, DR RUFF. GO TO THE EMERGENCY DEPARTMENT FOR ANY WORSENING OF YOUR CONDITION; PAIN, FEVER , DEHYDRATION, YOU FEEL LIKE PASSING OUT, YOU FEEL ILL OR ANY QUESTIONS OR CONCERNS. - Billing Disposition and Condition Condition: STABLE Disposition: Home
[2018-12-18] MEDS ORDERED: Metoclopramide IV* 5 MG/ML 2 ML VIAL IV ONE (19:48)
[2018-12-18 21:19] VITALS: BP 98/56
== END 2018-12-18 22:20 | disposition home or self-care (01) ==
LOC: UCEAST 17:48
DX: R10.13 Epigastric pain (principal); R10.9 Unspecified abdominal pain; E86.0 Dehydration; R11.2 Nausea with vomiting, unspecified; R19.7 Diarrhea, unspecified
CPT/HCPCS: 74176; 81003; 84702; 96360; 96374; 99213; A9270-GY; G0463; J2765

== ENCOUNTER 2019-01-14 12:38 | Emergency (ER) | payer BC, OTHER ==
--- NOTE | 2019-01-14 13:54 | ED ---
Head Injury - HPI Summary HPI Summary: Patient is a 28 y/o F presenting to ED with complaints of a head injury to left occipital area occurring today. 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 LOC, N/V, neck pain, and diplopia are denied. However, patient endorses DUNCAN and states that she has been a bit "spacey", noting that she has needed to ask people to repeat what they had said multiple times. Some dizziness is endorsed as well. PMHx of hypothyroid disease, asthma, PSHx of left ACL reconstruction, strabismus surgery x3, FMHx of HTN, patient reports occasional alcohol usage, denies substance usage and smoking cigarettes. She rates pain 2/10. Home medications and allergies are reviewed. - History Of Current Complaint Chief Complaint: EDHeadInjury Stated Complaint: "HIT MY HEAD" PER PT Time Seen by Provider: 01/14/19 13:44 Hx Obtained From: Patient Hx Last Menstrual Period: 2-3 weeks ago Mechanism Of Injury: Direct Blow Onset/Duration: Still Present Onset of Pain: Prior to Arrival Severity Initially: Mild - 2/10 Pain Intensity: 2 Pain Scale Used: 0-10 Numeric - 2/10 Location of Head Injury: Occipital - left Aggravating Factor(s): Other: - none Alleviating Factor(s): Other: - none Associated Signs And Symptoms: Headache, Other: - patient states she feels "spacey"; LOC, N/V, neck pain, diplopia are denied; some dizziness is endorsed - Allergies/Home Medications Allergies/Adverse Reactions: Allergies Allergy/AdvReac Type Severity Reaction Status Date / Time [facility] [[facility] Allergy Severe Anaphylatic Verified 01/14/19 13:23 Shock Penicillins Allergy Severe Anaphylatic Verified 01/14/19 13:23 Shock Latex, Natural Rubber Allergy Hives Verified 01/14/19 13:23 PMH/Surg Hx/FS Hx/Imm Hx Endocrine/Hematology History: Reports: Hx Thyroid Disease - hypothyroid Denies: Hx Anticoagulant Therapy, Hx Diabetes Cardiovascular History: Denies: Hx Hypertension, Hx Pacemaker/ICD, Other Cardiovascular Problems/ Disorders Respiratory History: Reports: Hx Asthma - exercise induced Denies: Hx Chronic Obstructive Pulmonary Disease (COPD), Hx Sleep Apnea, Other Respiratory Problems/Disorders GI History: Denies: Hx Ulcer, Other GI Disorders History: Denies: Hx Renal Disease, Other Problems/Disorders Musculoskeletal History: Reports: Other Musculoskeletal History - Fractured left ankle 2009, torn acl Denies: Hx Arthritis, Hx Bursitis, Hx Tendonitis Sensory History: Reports: Hx Contacts or Glasses - glasses and contacts Denies: Hx Hearing Aid Opthamlomology History: Reports: Hx Contacts or Glasses - glasses and contacts Neurological History: Denies: Other Neuro Impairments/Disorders Psychiatric History: Denies: Hx Panic Disorder - Surgical History Surgery Procedure, Year, and Place: 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 Left ACL Reconstruction February 2018 Hx Anesthesia Reactions: No Infectious Disease History: No Infectious Disease History: Denies: Hx Hepatitis, Hx Human Immunodeficiency Virus (HIV), Traveled Outside the US in Last 30 Days - Family History Known Family History: Positive: Hypertension - Social History Alcohol Use: Occasionally Hx Substance Use: No Substance Use Type: Reports: None Hx Tobacco Use: No Smoking Status (MU): Never Smoked Tobacco Review of Systems Negative: Diplopia Negative: Vomiting, Nausea Musculoskeletal: Other - POSITIVE - HEAD INJURY; NEGATIVE - NECK PAIN Neurological: Other - POSITIVE - SOME DIZZINESS, PATIENT IS "SPACEY" Positive: Headache. Negative: Syncope - NO LOC All Other Systems Reviewed And Are Negative: Yes Physical Exam - Summary Physical Exam Summary: VITAL SIGNS: Reviewed. GENERAL: Patient is a well-developed and nourished female who is lying comfortable in the stretcher. Patient is not in any acute respiratory distress. No signs of trauma. HEAD AND FACE: No signs of trauma. No ecchymosis, hematomas or skull depressions. No sinus tenderness. EYES: PERRLA, EOMI x 2, No injected conjunctiva, no nystagmus. EARS: Hearing grossly intact. Ear canals and tympanic membranes are within normal limits. MOUTH: Oropharynx within normal limits. NECK: Supple, trachea is midline, no adenopathy, no JVD, no carotid bruit, no c- spine tenderness, neck with full ROM. CHEST: Symmetric, no tenderness at palpation LUNGS: Clear to auscultation bilaterally. No wheezing or crackles. CVS: Regular rate and rhythm, S1 and S2 present, no murmurs or gallops appreciated. ABDOMEN: Soft, non-tender. No signs of distention. No rebound no guarding, and no masses palpated. Bowel sounds are normal. EXTREMITIES: FROM in all major joints, no edema, no cyanosis or clubbing. NEURO: Alert and oriented x 3. No acute neurological deficits. Speech is normal and follows commands. GCS 15. SKIN: Dry and warm; no erythema or lacerations at head Triage Information Reviewed: Yes Vital Signs On Initial Exam: Initial Vitals Temp Pulse Resp BP Pulse Ox 98.6 F 93 16 135/88 100 01/14/19 12:43 01/14/19 12:43 01/14/19 12:43 01/14/19 12:43 01/14/19 12:43 Vital Signs Reviewed: Yes - [place] Coma Scale Best Eye Response: 4 - Spontaneous Best Motor Response: 6 - Obeys Commands Best Verbal Response: 5 - Oriented Coma Scale Total: 15 Diagnostics - Vital Signs Vital Signs Temp Pulse Resp BP Pulse Ox 01/14/19 12:43 98.6 F 93 16 135/88 100 - Laboratory Lab Statement: Any lab studies that have been ordered have been reviewed, and results considered in the medical decision making process. Head Injury Course/Dx Assessment/Plan: Patient is a 28-year-old female who presents to the emergency department with chief complaint of headache. The patient reports that she was working in the or and she hit her head against a bed. She denies any loss of consciousness, denies any double vision denies any neck pain denies any nausea vomiting. She reports that the pain is only 2 out of 10. The patients neurological exam is intact, the GCS 15 and by the [place] CT rules, the patient does not qualify for a CT. Therefore at this point the patient will be discharged home with recommendations to take Tylenol or ibuprofen for pain. She was also recommended to return to the emergency department if she develops increasing headache, dizziness, nausea vomiting, blurred vision or any other symptom. The patient understands and agrees. Patient is ambulating out of the room with a good steady walk and she is hemodynamically stable. - Diagnoses Provider Diagnoses: Head contusion Discharge - Sign-Out/Discharge Documenting (check all that apply): Patient Departure - discharge Patient Received Moderate/Deep Sedation with Procedure: No - Discharge Plan Condition: Stable Disposition: HOME Patient Education Materials: Head Injury (ED) Referrals: Martinez JIN,Sharona Winslow [Primary Care Provider] - 3 Days Additional Instructions: RETURN TO ED FOR ANY NEW OR WORSENING SYMPTOMS. FOLLOW UP WITH YOUR PRIMARY CARE PHYSICIAN WITHIN THREE DAYS. - Billing Disposition and Condition Condition: STABLE Disposition: Home - Attestation Statements Document Initiated by Lon: Yes Documenting Scribe: QIANA FIGUEREDO Provider For Whom Lon is Documenting (Include Credential): GERMAN GUZMAN MD Scribe Attestation: IQIANA, scribed for GERMAN GUZMAN MD on 01/15/19 at 1056. Scribe Documentation Reviewed: Yes Provider Attestation: The documentation as recorded by the QIANA romano accurately reflects the service I personally performed and the decisions made by me, GERMAN GUZMAN MD Status of Scribe Document: Viewed
[2019-01-14 14:00] VITALS: BP 133/81
== END 2019-01-14 13:59 | disposition home or self-care (01) ==
LOC: ED 12:38
DX: S00.93XA Contusion of unspecified part of head, initial encounter (principal); W22.09XA Striking against other stationary object, initial encounter; Y93.F9 Activity, other caregiving; Y92.234 Operating room of hospital as the place of occurrence of the external cause; Y99.0 Civilian activity done for income or pay; E03.9 Hypothyroidism, unspecified; J45.909 Unspecified asthma, uncomplicated; Z88.3 Allergy status to other anti-infective agents; Z88.0 Allergy status to penicillin; Z91.040 Latex allergy status
CPT/HCPCS: 99282